=== PATIENT | female | born 1970 | race Caucasian/White ===

== ENCOUNTER 2024-03-26 00:41 | Emergency (ER) | payer OTHER ==
[~2024-03-26] VITALS: Ht 172.7 cm; Wt 90.7 kg
[2024-03-26 02:36] VITALS: BP 95/79; TEMP 98.3; O2SAT 93
== END 2024-03-26 02:36 | disposition home or self-care (01) ==
LOC: ER 00:48
DX: F19.10 Other psychoactive substance abuse, uncomplicated (principal)
CPT/HCPCS: 82962-TC